=== PATIENT | female | born 1960 | race Caucasian/White ===

== ENCOUNTER 2019-06-29 10:57 | Inpatient (IN) | payer BC ==
[2019-06-29 12:40] LABS: #Eosinphils 0.2 thou/uL (0.0-0.7); #Lymphocytes 1.1 thou/uL (1.20-3.40); #Monocytes 0.5 thou/uL (0.11-0.59); #Neutrophils 3.5 thou/uL (1.40-6.50); %Basophils 0.7 % (0.0-1.0); %Eosinophils 3.3 % (0.0-10.0); %Lymphocytes 20.6 % (21.0-51.0); %Monocytes 9.3 % (0.0-10.0); %Neutrophils 66.1 % (42.0-75.0); Hemoglobin 13.5 g/dL (12.0-16.0); Mean Corpuscular Hemoglobin 29.8 pg (27.0-31.0); Mean Corpuscular Volume 87.7 fL (78.0-98.0); Mean Platelet Volume 8.8 fL (7.4-10.4); Platelet Count 203 thou/uL (130-400); RBC Distribution Width 14.7 % (11.5-14.5); Red Blood Cell (RBC) Count 4.52 mill/uL (4.20-5.40); White Blood Cell (WBC) Count 5.3 thou/uL (4.8-10.8)
--- NOTE | 2019-06-29 13:12 | CT ---
Exam: CT brain PROVIDED CLINICAL HISTORY: Vertigo COMPARISON: None FINDINGS: The ventricular system is normal in size and morphology. No evidence for intracranial hemorrhage or mass effect. The extracranial soft tissues and osseous structures demonstrate no evidence for an acute abnormality. IMPRESSION: No evidence for intracranial hemorrhage or mass effect.
[2019-06-29] MEDS ORDERED: Ondansetron PF 4 MG/2 ML Vial ONE (13:22)
--- NOTE | 2019-06-29 13:22 | RAD ---
EXAM: Portable chest PROVIDED CLINICAL HISTORY: Chest pain COMPARISON: None FINDINGS: Cardiac silhouette appears enlarged, which may be least partially on the basis of portable technique. No focal consolidation, pleural fluid or pneumothorax evident. IMPRESSION: No evidence for an acute cardiopulmonary process.
[2019-06-29] MEDS ORDERED: Aspirin Chewable 81 MG TAB ONE (14:04)
[2019-06-29 14:16] LABS: ALT (SGPT) 16 U/L (8-55); AST (SGOT) 21 U/L (5-34); Albumin 3.6 g/dL (3.5-5.0); Alkaline Phosphatase 107 U/L (40-150); Anion Gap 10 mmol/L (10-20); BUN (Urea Nitrogen) 16 mg/dL (9.8-20.1); Bilirubin, Total Less than 0.2 mg/dL (0.2-1.2); Calc. Creatinine Clearance 0 mL/min (70-130); Calcium 8.8 mg/dL (7.8-10.44); Carbon Dioxide 26 mmol/L (22-29); Chloride 109 mmol/L (98-107); Estimated GFR-MDRD 50; Globulin 2.9 g/dL (2.4-3.5); Glucose 74 mg/dL (70-105); Lipase 18 U/L (8-78); Potassium 3.5 mmol/L (3.5-5.1); Protein, Total 6.5 g/dL (6.0-8.3); Sodium 141 mmol/L (136-145)
[2019-06-29 14:44] LABS: Bilirubin Negative (Negative); Blood, Urine Negative (Negative); Clarity Clear (Clear); Glucose, Urine (Dipstick) Normal (Negative); Leukocyte Negative Leu/uL (Negative); Nitrite Negative (Negative); Protein, Urine (Dipstick) Negative (Neg-Trace); Urobilinogen Normal mg/dL (Less than 2)
[2019-06-29 17:43] VITALS: BMI 31.5
[2019-06-29] MEDS: oxyCODONE 5 MG TAB PO PRN (22:04)
[2019-06-30] MEDS ORDERED: ALPRAZolam 0.25 MG TAB PO PRN (08:05)
[2019-06-30] MEDS ORDERED: Ondansetron ODT 4 MG TAB PO PRN (08:07)
[2019-06-30] MEDS ORDERED: Acetaminophen 325 MG TAB PO PRN (08:07)
[2019-06-30] MEDS ORDERED: Ondansetron PF 4 MG/2 ML Vial IVP PRN (08:07)
[2019-06-30] MEDS ORDERED: hydrALAZINE 20 MG/ML VIAL SLOW IVP PRN (08:09)
[2019-06-30] MEDS ORDERED: Docusate 100 MG CAP PO PRN (08:09)
[2019-06-30] MEDS ORDERED: diphenhydrAMINE 25 MG CAP PO PRN (08:09)
[2019-06-30] MEDS ORDERED: Benzonatate 100 MG CAP PO PRN (08:09)
[2019-06-30] MEDS ORDERED: Prevnar 13-Val Conj/PF 0.5 ML SYRINGE IM ONE (09:00)
[2019-06-30] MEDS: Pregabalin 75 MG CAP PO SCH ×2 (09:06→20:52)
[2019-06-30] MEDS: Bupropion 150 MG XL TAB PO SCH (09:06)
[2019-06-30] MEDS: Topiramate 25 MG TAB PO SCH ×2 (09:08→20:51)
[2019-06-30] MEDS: Famotidine 20 MG TAB PO SCH ×2 (09:08→20:50)
[2019-06-30] MEDS: Furosemide 20 MG TAB PO SCH (09:08)
--- NOTE | 2019-06-30 09:33 | CON ---
DATE OF CONSULTATION: 06/30/2019 IMPRESSION: Nonspecific fatigue, lower extremity tingling and low back pain. PLAN: 1. Sed rate, ESPERANZA, RA, B12, T4. 2. CT scan of the lumbar spine. HISTORY OF PRESENT ILLNESS: Ms. Benoit is a 59-year-old white female with reported history of fibromyalgia and bladder dysfunction, requiring an implanted device. She has been seeing a neurologist in the [facility] for several month history of what she describes as waves and explosions in her head. She was supposed to get an MRI done at a special unit that would accommodate the fact that she had a stimulator. Apparently, it has been put off for several months. She reports that she became very fatigued while she was at work and had her sister come pick her up. She went to her house and spent the entire day sleeping on her couch. She went back to her own house and slept through the night. The next day, she continued to feel fatigued. At some point, she started having lower back pain and tingling in her legs. She has not run any fever and denies any nausea, vomiting, blurred vision, double vision, trouble speaking, or any problems with cognition. She felt mentally foggy prior to admission. She came into the ER because of these ongoing complaints. She had a CT scan of the brain done, which was normal. Her vital signs have been stable. She has been afebrile. She had routine lab work including a CBC and comprehensive metabolic panel, which were all unremarkable as well. Her urinalysis was clear. PAST HISTORY: Fibromyalgia. FAMILY HISTORY: Noncontributory. ALLERGIES: SHELLFISH. SOCIAL HISTORY: No reported alcohol or drug use. REVIEW OF SYSTEMS: Ten-system review of systems otherwise negative. PHYSICAL EXAMINATION: GENERAL: She is a well-nourished, middle-aged woman, sitting up in bed, eating breakfast. VITAL SIGNS: Blood pressure 158/73, pulse 83, respirations 16, and temperature 97.7. HEENT: Pupils are equal and reactive. Conjunctivae are clear. Oropharynx clear. Cranium, normocephalic and atraumatic. NECK: Supple. No lymphadenopathy noted. She reported soft-tissue tenderness to light palpation of her throat. EXTREMITIES: No cyanosis, clubbing, or edema. NEUROLOGIC: She was alert and cooperative. Her speech is fluent and clear. Cranial nerves were intact. Motor exam showed good size roller operator strength bilaterally. She had good ankle strength and toe extension bilaterally. Sensation was subjectively intact to touch. Plantar responses were downgoing. No abnormal movements were seen. Gait was not tested. SUMMARY: This is a middle-aged woman with some vague ongoing complaints of rushes in her head, excessive fatigue and lower back pain and tingling in her legs. Her exam is otherwise unremarkable. Uncertain as an ongoing problem. I suspect that there is a psychogenic component to it. Job ID: [id number]
[2019-06-30] MEDS: oxyCODONE 5 MG TAB PO PRN (13:54)
--- NOTE | 2019-06-30 14:03 | ULT ---
EXAM: Carotid Doppler PROVIDED CLINICAL HISTORY: TIA COMPARISON: None FINDINGS: Grayscale and color Doppler sonography with spectral analysis was performed of the extracranial carot id system bilaterally. There is no evidence for a hemodynamically significant internal carotid artery stenosis by peak systolic velocity or ratio criteria. Antegrade flow is seen in the vertebral arteries. IMPRESSION: No sonographic evidence for a hemodynamically significant internal carotid artery stenosis.
[2019-06-30] MEDS: Cyclobenzaprine 10 MG TAB PO PRN (20:50)
[2019-06-30] MEDS: hydrOXYzine 25 MG TAB PO SCH (20:51)
[2019-06-30] MEDS: Amitriptyline HCl 100 MG TAB PO SCH (20:51)
[2019-07-01 05:25] LABS: #Eosinphils 0.2 thou/uL (0.0-0.7); #Lymphocytes 1.1 thou/uL (1.20-3.40); #Monocytes 0.6 thou/uL (0.11-0.59); #Neutrophils 4.2 thou/uL (1.40-6.50); %Basophils 0.5 % (0.0-1.0); %Eosinophils 3.3 % (0.0-10.0); %Monocytes 9.2 % (0.0-10.0); %Neutrophils 68.9 % (42.0-75.0); Hemoglobin 13.3 g/dL (12.0-16.0); Mean Corpuscular HGB CONC 34.1 g/dL (32.0-36.0); Mean Corpuscular Hemoglobin 30.1 pg (27.0-31.0); Mean Corpuscular Volume 88.3 fL (78.0-98.0); Mean Platelet Volume 8.1 fL (7.4-10.4); Platelet Count 194 thou/uL (130-400); RBC Distribution Width 14.5 % (11.5-14.5); Red Blood Cell (RBC) Count 4.43 mill/uL (4.20-5.40); White Blood Cell (WBC) Count 6.1 thou/uL (4.8-10.8)
[2019-07-01 05:30] LABS: Anion Gap 10 mmol/L (10-20); BUN (Urea Nitrogen) 14 mg/dL (9.8-20.1); Calc. Creatinine Clearance 69 mL/min (70-130); Calcium 8.9 mg/dL (7.8-10.44); Carbon Dioxide 26 mmol/L (22-29); Chloride 106 mmol/L (98-107); Estimated GFR-MDRD 50; Glucose 92 mg/dL (70-105); Potassium 3.9 mmol/L (3.5-5.1); Sodium 138 mmol/L (136-145)
[2019-07-01] MEDS: oxyCODONE 5 MG TAB PO PRN (07:04)
--- NOTE | 2019-07-01 07:45 | HP ---
CHIEF COMPLAINT: Weakness and near syncope. HISTORY OF PRESENT ILLNESS: Ms. Benoit is a 59-year-old female with past medical history of fibromyalgia, lupus, chronic pain syndrome, anxiety, depression, and neuropathic pain, who presents with worsening weakness and near syncope. The patient states that symptoms started on Monday when she went to work. She decided she was going to use a walker because she was feeling more weak. While at work, the patient was more tired than normal and had episodes where she felt like she was nearly going to pass out because she was so tired. The patient did not actually lose consciousness. The patient did not fall. The patient had no trauma to the head, arms, or legs. The patient also with weakness that is worse than her baseline. The patient with numbness and tingling on the right side of her face. The patient's family was concerned and [facility]. PAST MEDICAL HISTORY: 1. Fibromyalgia. 2. Lupus. 3. Chronic pain syndrome. 4. Anxiety. 5. Depression. 6. Migraines. 7. Neuropathic pain. 8. Muscle spasms. MEDICATIONS: 1. Amitriptyline. 2. Lyrica. 3. Topiramate. 4. Cyclobenzaprine. 5. Oxycodone 10 mg one tab p.o. q.8 hours p.r.n. 6. Hydroxyzine 25 mg one tablet p.o. at bedtime. 7. Furosemide 20 mg one tablet p.o. daily p.r.n. lower extremity swelling. 8. Bupropion 150 mg one tablet p.o. daily. 9. Xanax 0.25 mg one tablet p.o. t.i.d. p.r.n. REVIEW OF SYSTEMS: A 10-point review of systems was performed and negative aside from history of present illness. ALLERGIES: SHELLFISH DERIVED. PHYSICAL EXAMINATION: VITAL SIGNS: Temperature 97.7, pulse 83, respirations 16, O2 saturation 95% on room air, and blood pressure 158/73. GENERAL: The patient is alert and oriented, cooperative with exam and follows all commands. The patient in no acute distress. HEENT: Head is normocephalic and atraumatic. Pupils are equally round and reactive to light and accommodation. Extraocular muscles intact. Vision is grossly intact. There are no appreciated exudates or erythema on the tonsils. CARDIAC: S1 and S2 present. No appreciated murmurs, rubs, or gallops. There is no significant peripheral edema. LUNGS: Clear to auscultation bilaterally. No appreciated wheezing, rales, or rhonchi. ABDOMEN: Soft, nontender, and nondistended without guarding or rigidity. No appreciated masses or abdominal bruit. MUSCULOSKELETAL: There is adequate alignment of the spine that is tender to palpation bilaterally. Normal muscle development. EXTREMITIES: No significant deformity or joint abnormality. No significant lower extremity or upper extremity edema. NEUROLOGIC: Cranial nerves II through XII are grossly intact. Strength is symmetric. Subjective decrease in sensation on the right side of the face. Poor effort with motor exam testing. SKIN: Normal in color, texture, and turgor. There are no appreciated lesions or rashes. PSYCHIATRIC: The patient is alert and oriented x3 and has fair insight and judgment into clinical condition. No hallucinations or abnormal behavior. LABORATORY DATA: WBC 5.3, RBC 4.52, hemoglobin 13.5, hematocrit 39.7, MCV 87.7, and platelets 203. Sodium 141, potassium 3.5, chloride 109, carbon dioxide 26, anion gap of 10, BUN 16, creatinine 1.12, GFR 50, glucose 74, calcium 8.8, total bilirubin less than 0.2, AST 21, ALT 16, and alkaline phosphatase 107. Troponin less than 0.010. BNP less than 10. Serum total protein 6.5, serum albumin 3.6, globulin 2.9, lipase 18. Urinalysis; urine color is light yellow, urine clarity is clear, urine pH 7.0, urine specific gravity 1.009, urine protein negative, urine glucose normal, urine ketones negative, urine blood negative, urine nitrites negative, urine bilirubin negative, urine urobilinogen normal, and leukocyte esterase negative. RADIOGRAPHIC IMAGING: Please see full imaging reports for details. CT brain: Impression, no evidence for intracranial hemorrhage or mass effect. Chest x-ray: Impression: No evidence for acute cardiopulmonary process. ASSESSMENT AND PLAN: 1. Generalized weakness with right-sided paresthesias and near syncope - concern for transient ischemic attack. The patient admitted to the Stroke Unit. The patient will have MRI of the brain. The patient will have echocardiogram. The patient will have ultrasound of the neck. The patient has no appreciated focal neurologic deficits and is outside of tPA window as the timing of incident was Monday morning and this is now Monday morning. Pending the above workup, we will consider stroke regimen including aspirin, statin, and ANNEL inhibitor. Pending Neurology consultation requested by the emergency department physician for further recommendations. If the above workup is negative, the patient's symptoms may be explained by polypharmacy and she is taking multiple medications that can cause altered mental status and decreased awareness. We will public relations counselor the patient on avoiding combination of medications that may decrease her level of awareness. 2. Polypharmacy including oxycodone, Xanax, Lyrica, Flexeril, and amitriptyline, all of which are known to cause altered mental status and decrease awareness. 3. Near syncope - secondary to above. 4. Chronic pain syndrome. 5. Fibromyalgia. 6. Lupus. 7. Depression. 8. Anxiety. 9. Neuropathic pain. 10. Migraines. 11. Insomnia. Job ID: [id number]
[2019-07-01] MEDS: Topiramate 25 MG TAB PO SCH ×2 (08:24→21:12)
[2019-07-01] MEDS: Pregabalin 75 MG CAP PO SCH ×2 (08:25→21:11)
[2019-07-01] MEDS: Furosemide 20 MG TAB PO SCH (08:26)
[2019-07-01] MEDS: Famotidine 20 MG TAB PO SCH ×2 (08:26→21:11)
[2019-07-01] MEDS: Bupropion 150 MG XL TAB PO SCH (08:26)
--- NOTE | 2019-07-01 10:12 | CT ---
CT LUMBAR SPINE WITHOUT CONTRAST: INDICATIONS: Low back pain with bilateral lower extremity radiculopathy COMPARISON: Chest radiograph dated June 29, 2019 TECHNIQUE: Multiple CT images were obtained of the lumbar spine without contrast. Axial, coronal, and sagittal r eformatted images were constructed from the raw data. FINDINGS: Visualized retroperitoneal and paravertebral soft tissues: Within normal limits Spinal alignment: There is grade 1 anterolisthesis of L4 on L5. 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 Spinal instrumentation or postsurgical change: There is partial visualization of a stimulator lead pr ojecting in the region of the left S3 neural foramina. At L5-S1, there is no appreciable central canal or neuroforaminal narrowing.. At L4-5, there is severe bilateral facet joint degenerative change. There is grade 1 anterolisthesis with a broad-based pseudobulge. There is mild bilateral neural foraminal narrowing. There is suggestion of at least moderate central canal narrowing at L4-5 At L3-4, there is a mild broad-based bulge and mild facet joint degenerative change. At L2-3, there is no appreciable central canal or neuroforaminal narrowing. At L1-L2, there is no appreciable central canal or neuroforaminal narrowing. At T12-L1, there is no appreciable central canal or neuroforaminal narrowing. IMPRESSION: 1. Mild spondylosis of the lumbar spine with mild bilateral neural foraminal narrowing and moderate central canal narrowing at L4-5. 2. Grade 1 anterior listhesis of L4 and L5 related to facet degenerative change. 3. 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 5 lumbar type vertebral bodies are marked on the current examination.
--- NOTE | 2019-07-01 15:04 | PDOC.HOSPP ---
- Subjective Subjective: Seen and examined. Patient states that she's taken her oxycodone and now she's feeling sleepy and trouble staying awake. Patient breathing well on room air. In no apparent distress. No focal neurologic deficits. Subjective paresthesias and pains persistent. - Objective Vital Signs & Weight: Vital Signs (12 hours) Temp Pulse Pulse Pulse Resp BP BP 07/01/19 12:04 97.4 F L 95 20 07/01/19 11:15 98 95 100/66 126/74 07/01/19 08:25 07/01/19 08:10 97.8 F 80 12 07/01/19 04:00 97.6 F 84 14 BP Pulse Ox 07/01/19 12:04 120/72 96 07/01/19 11:15 07/01/19 08:25 97 07/01/19 08:10 109/64 97 07/01/19 04:00 109/63 92 L Weight Admit Weight 177 lb 14.4 oz Weight 177 lb 14.4 oz I&O: 06/30/19 07/01/19 07/02/19 06:59 06:59 06:59 Intake Total 720 1120 480 Balance 720 1120 480 Result Diagrams: 07/01/19 04:45 07/01/19 04:45 Radiology Reviewed by me: Yes (CT lumbar) Hospitalist ROS - Medication Medications: Active Medications Generic Name Dose Route Start Last Admin Trade Name Freq PRN Reason Stop Dose Admin Amitriptyline HCl 100 mg 06/30/19 21:00 06/30/19 20:51 Elavil PO 100 mg QPM DIMAS Administration Bupropion HCl 150 mg 06/30/19 09:00 07/01/19 08:26 Wellbutrin Xl PO 150 mg DAILY DIMAS Administration Cyclobenzaprine HCl 10 mg 06/30/19 08:05 06/30/19 20:50 Flexeril PO 10 mg BIDPRN PRN Administration Muscle Spasm Famotidine 20 mg 06/30/19 09:00 07/01/19 08:26 Pepcid PO 20 mg BID DIMAS Administration Furosemide 20 mg 06/30/19 09:00 07/01/19 08:26 Lasix PO 20 mg DAILY DIMAS Administration Hydroxyzine HCl 25 mg 06/30/19 21:00 06/30/19 20:51 Atarax PO 25 mg QPM DIMAS Administration Oxycodone HCl 10 mg 06/29/19 20:32 07/01/19 07:04 Oxycodone Ir PO 10 mg Q8H PRN Administration Pain Pregabalin 150 mg 06/30/19 09:00 07/01/19 08:25 Lyrica PO 150 mg BID DIMAS Administration Topiramate 50 mg 06/30/19 09:00 07/01/19 08:24 Topamax PO 50 mg BID DIMAS Administration - Exam General Appearance: NAD, awake alert Eye: anicteric sclera ENT: no oropharyngeal lesions, moist mucosa Neck: supple, symmetric, no JVD Heart: no murmur, no gallops, no rubs Respiratory: no wheezes, no rales, no ronchi Gastrointestinal: soft, non-tender, non-distended, no guarding, no rigidity Extremities: no edema Skin: no lesions, no rashes Neurological: cranial nerve grossly intact, normal sensation to touch, no focal deficits Musculoskeletal: no muscle wasting, generalized weakness (poor effort) Psychiatric: normal affect, A&O x 3 Hosp A/P (1) Back pain Code(s): M54.9 - DORSALGIA, UNSPECIFIED Status: Chronic (2) Numbness and tingling Code(s): R20.0 - ANESTHESIA OF SKIN; R20.2 - PARESTHESIA OF SKIN Status: Chronic (3) Near syncope Status: Acute (4) Fibromyalgia Status: Chronic (5) Fibromyalgia affecting multiple sites Code(s): M79.7 - FIBROMYALGIA Status: Chronic - Plan Plan: neurology consultation, recommendations appreciated patient and able to complete MRI secondary to implanted hardware that is not compatible with our MRI machine, she does have an outpatient appointment for MRI in July that she is going to follow up with sheets tells me. Lumbar spine CT scan with no significant pathology metabolic workup was benign echocardiogram normal patient with chronic pain syndrome, fibromyalgia, and polypharmacy patient needs to follow up with primary care physician on a regular basis to avoid future hospitalizations
[2019-07-01] MEDS: Amitriptyline HCl 100 MG TAB PO SCH (21:11)
[2019-07-01] MEDS: hydrOXYzine 25 MG TAB PO SCH (21:11)
[2019-07-01] MEDS: Cyclobenzaprine 10 MG TAB PO PRN (21:12)
[2019-07-02] MEDS: Pregabalin 75 MG CAP PO SCH (09:17)
[2019-07-02] MEDS: Furosemide 20 MG TAB PO SCH (09:18)
[2019-07-02] MEDS: Famotidine 20 MG TAB PO SCH (09:18)
[2019-07-02] MEDS: Bupropion 150 MG XL TAB PO SCH (09:18)
[2019-07-02] MEDS: Topiramate 25 MG TAB PO SCH (09:18)
--- NOTE | 2019-07-02 11:12 | PDOC.HOSPP ---
- Subjective Subjective: Seen and examined. Patient is groggy early this morning. No acute overnight events. Pain controlled on current regimen. Patient considering rehab. - Objective Vital Signs & Weight: Vital Signs (12 hours) Temp Pulse Pulse Pulse Resp BP BP 07/02/19 10:02 07/02/19 09:22 98 F 88 11 L 07/02/19 09:18 92 89 130/71 137/78 07/02/19 03:53 97.3 F L 80 16 07/02/19 00:00 97.7 F 86 16 BP BP Pulse Ox 07/02/19 10:02 97 07/02/19 09:22 137/78 97 07/02/19 09:18 07/02/19 03:53 111/66 97 07/02/19 00:00 110/65 95 Weight Admit Weight 177 lb 14.4 oz Weight 177 lb 14.4 oz I&O: 07/01/19 07/02/19 07/03/19 06:59 06:59 06:59 Intake Total 1120 600 Balance 1120 600 Result Diagrams: 07/01/19 04:45 07/01/19 04:45 Hospitalist ROS - Review of Systems All other systems reviewed; all pertinent +/- noted in HPI/Subj - Medication Medications: Active Medications Generic Name Dose Route Start Last Admin Trade Name Freq PRN Reason Stop Dose Admin Amitriptyline HCl 100 mg 06/30/19 21:00 07/01/19 21:11 Elavil PO 100 mg QPM DIMAS Administration Bupropion HCl 150 mg 06/30/19 09:00 07/02/19 09:18 Wellbutrin Xl PO 150 mg DAILY DIMAS Administration Cyclobenzaprine HCl 10 mg 06/30/19 08:05 07/01/19 21:12 Flexeril PO 10 mg BIDPRN PRN Administration Muscle Spasm Famotidine 20 mg 06/30/19 09:00 07/02/19 09:18 Pepcid PO 20 mg BID DIMAS Administration Furosemide 20 mg 06/30/19 09:00 07/02/19 09:18 Lasix PO 20 mg DAILY DIMAS Administration Hydroxyzine HCl 25 mg 06/30/19 21:00 07/01/19 21:11 Atarax PO 25 mg QPM DIMAS Administration Oxycodone HCl 10 mg 06/29/19 20:32 07/01/19 07:04 Oxycodone Ir PO 10 mg Q8H PRN Administration Pain Pregabalin 150 mg 06/30/19 09:00 07/02/19 09:17 Lyrica PO 150 mg BID DIMAS Administration Topiramate 50 mg 06/30/19 09:00 07/02/19 09:18 Topamax PO 50 mg BID DIMAS Administration - Exam General Appearance: NAD, awake alert Eye: anicteric sclera ENT: normocephalic atraumatic, moist mucosa Neck: supple, symmetric, no thyromegaly Heart: no murmur, no gallops, no rubs Respiratory: no wheezes, no rales, no ronchi Gastrointestinal: soft, non-tender, non-distended, no guarding, no rigidity Extremities: no clubbing, no edema Skin: no lesions, no rashes Neurological: cranial nerve grossly intact, no focal deficits. negative: facial droop, hemiplegia, speech deficit, vision deficit Musculoskeletal: normal tone, no muscle wasting, generalized weakness Psychiatric: normal affect, A&O x 3 Hosp A/P (1) Back pain Code(s): M54.9 - DORSALGIA, UNSPECIFIED Status: Chronic (2) Numbness and tingling Code(s): R20.0 - ANESTHESIA OF SKIN; R20.2 - PARESTHESIA OF SKIN Status: Chronic (3) Near syncope Status: Acute (4) Fibromyalgia Status: Chronic (5) Fibromyalgia affecting multiple sites Code(s): M79.7 - FIBROMYALGIA Status: Chronic - Plan Plan: Medical unit with telemetry stroke unit patient considering rehabilitation placement to regain her strength clinical suspicion for CVA is extremely unlikely per neurology, psychogenic etiology and fibromyalgia flair likely cause of patient symptoms in addition to polypharmacy neurology consultation, recommendations appreciated patient and able to complete MRI secondary to implanted hardware that is not compatible with our MRI machine, she does have an outpatient appointment for MRI in July Lumbar spine CT scan with no significant pathology metabolic workup was benign echocardiogram normal patient with chronic pain syndrome, fibromyalgia, and polypharmacy patient needs to follow up with primary care physician on a regular basis to avoid future hospitalizations
--- NOTE | 2019-07-02 15:02 | DIS ---
DATE OF ADMISSION: 06/29/2019 DATE OF DISCHARGE: 07/02/2019 REASON FOR HOSPITALIZATION: Near syncope and altered level of consciousness. SIGNIFICANT FINDINGS: The patient was found to have polypharmacy including taking oxycodone, Xanax, and Flexeril as often as she wants to and this resulted in her being less aware of her surroundings. PROCEDURES PERFORMED/TREATMENTS RENDERED: The patient was seen and evaluated by Neurology, please see full consultation and progress notes for details. The patient had a full workup including labs and imaging by Neurology, all of which were found to have minor abnormalities without any significant pathology. The patient was recommended placement for rehabilitation facility by a physical therapist-the patient unfortunately refused any rehabilitation facility and states that she would like to go home with home health care. CONDITION ON DISCHARGE: Stable. SPECIFIC INSTRUCTIONS FOR THE PATIENT/FAMILY: 1. The patient is recommended to stop oxycodone, Xanax, and Flexeril. 2. The patient is recommended to follow up with primary care physician and all other specialists as directed. 3. The patient is recommended to follow up with neurologist in the next 1 to 2 weeks. 4. The patient is recommended to follow up with production painter in the next 1 to 2 weeks. 5. The patient is recommended to keep her appointment in July for an MRI in the outpatient setting, which is compliant with her implanted nerve stimulator. 6. The patient is recommended to work with Physical Therapy and Occupational Therapy in the home setting and regain her balance so that she has lower risk to falls. 7. The patient is recommended to return to acute care hospital immediately if signs or symptoms return, worsen, or any other new symptoms occur. DISCHARGE MEDICATIONS: 1. Amitriptyline 100 mg one tablet p.o. at bedtime. 2. Lyrica 150 mg one tablet p.o. b.i.d. 3. Topiramate 50 mg one tablet p.o. b.i.d. 4. Hydroxyzine 25 mg one tablet p.o. q.4 hours p.r.n. anxiety. 5. Furosemide 20 mg one tablet p.o. daily. 6. Bupropion 150 mg one tablet p.o. daily. 7. Tylenol 325 mg q.4 hours p.r.n. pain. HOSPITAL COURSE: Ms. Benoit is a very pleasant 59-year-old white female, who presented to [facility] on 06/29/2019 with near syncope and altered level of consciousness. The patient was alert and oriented x3, though she was somnolent and difficult to question on admission. The patient was initially concerned for transient ischemic attack by the emergency department physician and she was admitted to the Stroke Unit. The patient had a CT scan of the brain, please see full report for details, no acute intracranial pathology was identified. The patient was not a tPA candidate secondary to low NIH score. The patient had no focal neurologic deficits. The patient has no appreciated focal motor weaknesses. The patient does have subjective paresthesias on the right side of her face and the right side of her arm. The patient does state that she occasionally gets tired when she takes her oxycodone, Xanax, and Flexeril. She endorses that she takes these medications as often as she needs them. The patient was seen and evaluated by Neurology, please see full consultation and progress notes for details. Neurology recommending MRI of the brain. Unfortunately, MRI could not be completed secondary to implanted nerve stimulator. Neurology recommending that she comply with her outpatient MRI that is scheduled in July and she will have this result within the next one month. She will follow up on MRI results with her primary care physician, neurologist, and production painter. The rest of the patient's workup was overly benign including laboratory data and imaging. I recommended the patient that she stop polypharmacy including medications that can alter her level of consciousness, including but not limited to Percocet, oxycodone, Xanax, and Flexeril. These medications individually are known to cause altered level of consciousness and when combined in getting this cocktail can be a lethal combination. I recommended she stop all these medications and talk them over with her primary care physician, neurologist, and production painter in the next 1 to 2 weeks. The patient is recommended to follow up with all specialists as directed. The patient recommended to return to acute care hospital immediately if signs or symptoms return, worsen, or any other new symptoms occur. The patient was evaluated by Physical Therapy, who recommended the patient was appropriate for rehabilitation placement. I recommended to the patient that she go to rehab and get a full course of inpatient rehab for strength and balance training and to regain her level of independence. Nursing staff and case fitter recommended to the patient that she go to a rehabilitation facility. Unfortunately, despite all of our efforts, the patient refused any rehabilitation placement. Patient decided that she was going to go home and she would like to go home with home health care. Efforts were made coordinating with case fitter to set up the patient with home health care, so that she will have physical therapy and occupational therapy in the home setting. Greater than 41 minutes spent coordinating care and discharge process for this patient. Job ID: [id number]
[2019-07-02] MEDS: oxyCODONE 5 MG TAB PO PRN (16:30)
[2019-07-02 16:35] VITALS: BP 101/64; TEMP 97.7
[2019-07-03 17:28] LABS: ANA Symphony (Qualitative) Negative (Negative); ANA Symphony (Quantitative) 0.4 Ratio (< 0.7 Negative); CCP IgG Antibody 0.6 EliAU/mL (<7 Negative); EliA RAS New Method **** NEW METHOD ****; Rheumatoid Factor IgA Antibody 2.1 IU/mL (<14 Negative); Rheumatoid Factor IgM Antibody Less than 0.5 IU/mL (<3.5 Negative); dsDNA IgG Antibody 1.6 IU/mL (<10 Negative)
--- NOTE | 2019-07-04 06:20 | PQF ---
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 Clinical indicators are provided on the bottom of this form for your review Please check appropriate box(s): Syncope Due to: [ XX ] Adverse effect of Polypharmarcy drugs [ ] Poisioning of Polypharmarcy drugs [ ] Other diagnosis [ ] Unable to determine In addition, please specify: Present on Admission (POA): [ XX ] Yes [ ] No [ ] Unable to determine For continuity of documentation, please document condition throughout progress notes and discharge summary. Thank You. CLINICAL INDICATORS - SIGNS / SYMPTOMS / LABS Weakness and syncope - Documented in H&P on 06/29 by NIA WIN Pts symptoms may be explained by polypharmacy - Documented in H&P on 06/29 by NIA WIN she is taking multiple medication that can cause AMS and decreased awarness - Documented in H&P on 06/29 by NIA WIN Polypharmacy including oxycodone, xanax, lyrica, flexeril and amitriptyline - Documented in H&P on 06/29 by NIA WIN she occasionally get tired when he takes her oxycodone, xanax - Documented in DS on 07/03 by NIA WIN RISK FACTORS Lupus - Documented in H&P on 06/29 by NIA WIN Medication individually are known as cause of altered level of consciousness - Documented in DS on 07/03 by NIA WIN TREATMENTS consult patient avoiding combination of medication - Documented in H&P on 06/29 by AUDELIA, NIA LACY brain [employer] B[employer]er Worker Crystal Reports Winform Viewer (This form is maintained as a part of the permanent medical record) 2014 [employer]. All Rights Reserved [email or web address] [not provided] MTDD
== END 2019-07-02 16:58 | disposition home health service (06) | DRG 312 ==
LOC: ERS 10:57 → 2SE 15:20 → OBSVTOIN 15:20
PROVIDERS: ADMIT Internal Medicine; ATTEND Internal Medicine
DX: R55 Syncope and collapse (principal); F41.9 Anxiety disorder, unspecified; G43.909 Migraine, unspecified, not intractable, without status migrainosus; M79.7 Fibromyalgia; G89.4 Chronic pain syndrome; G47.00 Insomnia, unspecified; M54.5 Low back pain; T39.1X5A Adverse effect of 4-Aminophenol derivatives, initial encounter; T42.4X5A Adverse effect of benzodiazepines, initial encounter; T48.1X5A Adverse effect of skeletal muscle relaxants [neuromuscular blocking agents], initial encounter; Z79.899 Other long term (current) drug therapy; Z91.013 Allergy to seafood
CPT/HCPCS: 36415; 70450; 71045; 72131; 80048; 80053; 81003; 82607; 83520; 83690; 83880; 84436; 84484; 85025; 85652; 86038; 86200; 86225; 90471; 90670; 93005; 93306; 93880; 96361; 96374; G0009; J2405

== ENCOUNTER 2019-09-30 16:08 | Emergency (ER) | payer BC ==
--- NOTE | 2019-09-30 16:40 | CT ---
Exam: Head CT without contrast HISTORY: Syncopal episode. COMPARISON: 06/29/2019 FINDINGS: Hemorrhage: No intraparenchymal hemorrhage or extra-axial hematoma. Brain parenchyma: Cortical arguello-white matter differentiation is preserved. No mass effect or midline shift. Basilar cisterns are patent. Ventricular system: Ventricles and sulci are patent and symmetric. Calvarium: Intact. Sinuses and mastoid air cells: Adequate aeration. IMPRESSION: No acute intracranial process.
[2019-09-30 16:42] LABS: #Eosinphils 0.1 thou/uL (0.0-0.7); #Lymphocytes 1.3 thou/uL (1.20-3.40); #Monocytes 0.5 thou/uL (0.11-0.59); %Basophils 0.8 % (0.0-1.0); %Lymphocytes 26.8 % (21.0-51.0); %Monocytes 9.2 % (0.0-10.0); %Neutrophils 60.2 % (42.0-75.0); Hemoglobin 13.7 g/dL (12.0-16.0); Mean Corpuscular HGB CONC 33.8 g/dL (32.0-36.0); Mean Corpuscular Hemoglobin 29.6 pg (27.0-31.0); Mean Corpuscular Volume 87.7 fL (78.0-98.0); Platelet Count 205 thou/uL (130-400); RBC Distribution Width 14.6 % (11.5-14.5); Red Blood Cell (RBC) Count 4.61 mill/uL (4.20-5.40); White Blood Cell (WBC) Count 4.9 thou/uL (4.8-10.8)
[2019-09-30 17:01] LABS: ALT (SGPT) 17 U/L (8-55); AST (SGOT) 22 U/L (5-34); Albumin 4.1 g/dL (3.5-5.0); Alkaline Phosphatase 122 U/L (40-110); BUN (Urea Nitrogen) 14 mg/dL (9.8-20.1); Bilirubin, Total 0.3 mg/dL (0.2-1.2); Calc. Creatinine Clearance 0 mL/min (70-130); Carbon Dioxide 25 mmol/L (22-29); Chloride 106 mmol/L (98-107); Estimated GFR-MDRD 46; Globulin 3.5 g/dL (2.4-3.5); Glucose 88 mg/dL (70-105); Potassium 3.4 mmol/L (3.5-5.1); Protein, Total 7.6 g/dL (6.0-8.3); Sodium 139 mmol/L (136-145)
[2019-09-30 17:13] LABS: Anion Gap 11 mmol/L (10-20)
--- NOTE | 2019-09-30 17:31 | RAD ---
SINGLE VIEW OF THE CHEST: Comparison: 06-29-19 History: Syncope. FINDINGS: Single view of the chest shows a cardiomediastinal silhouette which is upper limits of normal in size . There is no evidence of consolidation, mass, or pleural effusion. Degenerative changes are seen in the spine. IMPRESSION: No evidence of acute cardiopulmonary disease. POS: C
--- NOTE | 2019-09-30 17:34 | CT ---
CT OF THE CERVICAL SPINE WITHOUT CONTRAST: Comparison: None History: Syncope with head trauma and neck pain. Technique: Multiple contiguous axial images were obtained in a CT of the cervical spine without contr ast. Sagittal and coronal reformats were performed. FINDINGS: The C5 vertebral body is retro-displaced compared to the C4 and C6 vertebral bodies. This is secondar y to degenerative change. There is no evidence of acute fracture or subluxation. Moderate degenerativ e changes are seen throughout the cervical spine with intervertebral disc space narrowing and osteoph yte formation. The posterior facets are well aligned. Normal alignment of the skull base with the cervical spine is seen. IMPRESSION: Degenerative changes of the cervical spine without acute osseous abnormality. POS: [facility]
--- NOTE | 2019-09-30 20:03 | PDOC.HHP ---
Hospitalist HPI - History of Present Illness AMS History of Present Illness: Ms. Benoit is 59y/o female with h/o chronic pain syndrome, fibromyalgia, anxiety, depression, neuropathic pain who presented to the ER after sudden collapse and LOC. Patient states that she felt "popping sounds" in her head for ~1 hour prior to suddenly losing consciousness. It is unclear how long she was out for and no witnesses to the episode is at her bedside. She reports that her symptoms have been ongoing for months and she follows up with neurologist outpatient. She had a recent MRI in [facility] and it was unremarkable. She has no obvious seizure and work up by neurologist outpatient thus far has been unremarkable. Patient was seen here at the hospital in june 2019 and advised to wean off sedative meds-including xanax, oxycodone, percocet and flexeril which she usually takes as she needs and together. She has continued on the medications. She has been drowsy since arrival to the ER. Her sister is currently at bedside who states that following these episodes, patient has pressured speech and stutters. Hospitalist ROS - Review of Systems ROS unobtainable: due to mental status (Limited due to drowsy) Hospitalist History - Past Medical History Source: old records Cardiac: reports: HTN, Hyperlipidemia Psych: reports: Anxiety, Depression, Other Rheumatologic: reports: Fibromyalgia - Past Surgical History Past Surgical History: reports: - Family History Family History: reports: Other (epilepsy) - Social History Smoking Status: Never smoker Alcohol: reports: None Living Situation: With Family - Exam General Appearance: NAD Eye: PERRL ENT: normocephalic atraumatic Neck: supple, symmetric Heart: RRR, no murmur Respiratory: CTAB, no wheezes Gastrointestinal: soft, non-tender, non-distended Extremities: no cyanosis, no clubbing, no edema Skin: normal turgor, no lesions Neurological: cranial nerve grossly intact, normal sensation to touch, no weakness, no focal deficits, no new deficit Musculoskeletal - other findings: Generalized muscle tenderness Psychiatric: normal affect, A&O x 3, oriented to person Psychiatric - other findings: Abnormal behavior Hospitalist Results - Labs Result Diagrams: 09/30/19 16:25 09/30/19 16:25 Lab results: WBC 4.9 thou/uL (4.8-10.8) 09/30/19 16:25 Hgb 13.7 g/dL (12.0-16.0) 09/30/19 16:25 Hct 40.4 % (36.0-47.0) 09/30/19 16:25 MCV 87.7 fL (78.0-98.0) 09/30/19 16:25 Plt Count 205 thou/uL (130-400) 09/30/19 16:25 Neutrophils % 60.2 % (42.0-75.0) 09/30/19 16:25 Sodium 139 mmol/L (136-145) 09/30/19 16:25 Potassium 3.4 mmol/L (3.5-5.1) L 09/30/19 16:25 Chloride 106 mmol/L (98-107) 09/30/19 16:25 Carbon Dioxide 25 mmol/L (22-29) 09/30/19 16:25 BUN 14 mg/dL (9.8-20.1) 09/30/19 16:25 Creatinine 1.19 mg/dL (0.6-1.1) H 09/30/19 16:25 Glucose 88 mg/dL (70-105) 09/30/19 16:25 Calcium 9.0 mg/dL (7.8-10.44) 09/30/19 16:25 Total Bilirubin 0.3 mg/dL (0.2-1.2) 09/30/19 16:25 AST 22 U/L (5-34) 09/30/19 16:25 ALT 17 U/L (8-55) 09/30/19 16:25 Alkaline Phosphatase 122 U/L (40-110) H 09/30/19 16:25 Troponin I Less than 0.010 ng/mL (< 0.028) 09/30/19 16:25 Serum Total Protein 7.6 g/dL (6.0-8.3) 09/30/19 16:25 Albumin 4.1 g/dL (3.5-5.0) 09/30/19 16:25 - Radiology Interpretation CT scan - head Status: report reviewed by me Hospitalist H&P A/P - Plan Plan: Ms Benoit is 59y/o female who presents with probable LOC. #? Syncope- Patient has polypharmacy that are sedatives. Doubt this is a syncopal or seizure event. -Her symptoms are not cw any diagnosis thus far -She has full work up recently that has been unrevealing. No neuro focal deficits appreciated on PE. -Her post event pressured speech/stutter seems to disappear once she is engaged in a conversation. ?factitious disorder -CT brain is unremarkable. Recent MRI brain done at [facility] due to patient's nerve stimulator implant, also unremarkable. -Echocardiography recently. -For now telemonitoring and further attempts to rule out organic etiology -She will need to be weaned off narcotics and anxiolytics. 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 -history of fibromyalgia -Requesting for pain meds, will reinitiate to avoid withdrawal -monitor mental status #Lupus - not currently on any therapy. Needs outpatient follow up #Depression, anxiety- resume home meds. -on zyprexa for unclear diagnosis. -may benefit from psych evaluation outpatient. DVT ppx-SCD Patient is full code.
[2019-09-30] MEDS ORDERED: Amitriptyline HCl 100 MG TAB PO SCH (21:00)
[2019-09-30] MEDS ORDERED: hydrOXYzine 25 MG TAB PO SCH (21:00)
[2019-09-30] MEDS ORDERED: Pregabalin 75 MG CAP PO SCH (21:00)
[2019-10-01] MEDS ORDERED: Bupropion 150 MG XL TAB PO SCH (09:00)
[2019-10-01] MEDS ORDERED: Topiramate 25 MG TAB PO SCH (09:00)
== END 2019-09-30 20:18 | disposition home or self-care (01) ==
LOC: ERS 16:08
DX: R55 Syncope and collapse (principal); Z86.73 Personal history of transient ischemic attack (TIA), and cerebral infarction without residual deficits; Z79.899 Other long term (current) drug therapy
CPT/HCPCS: 36415; 70450; 71045; 72125; 80053; 84484; 85025; 93005; L0120

== ENCOUNTER 2020-04-27 12:47 | Emergency (ER) | payer BC, OTHER, SELFPAY ==
[2020-04-27] MEDS ORDERED: Aspirin Chewable 81 MG TAB ONE (13:29)
[2020-04-27] MEDS ORDERED: Ondansetron ODT 4 MG TAB ONE (13:29)
[2020-04-27] MEDS ORDERED: Acetaminophen 500 MG TAB ONE (13:29)
--- NOTE | 2020-04-27 13:50 | RAD ---
EXAM: Chest one view: HISTORY: Chest pain and shortness of breath COMPARISON: 09/30/2019 FINDINGS: Heart size: Within normal limits. Lungs: Patchy alveolar nodular and groundglass opacity changes in both lungs upper mid and lower aspe cts slightly worse on the left side. This certainly could be consistent with atypical pneumonia including viral pneumonia and Covid 19. Correlate with laboratory findings. No pleural effusion. IMPRESSION: Bilateral patchy alveolar and groundglass opacity changes evidence for atypical pneumonia including v iral pneumonias and Covid 19.
[2020-04-27 14:29] LABS: #Lymphocytes 0.5 thou/uL (1.20-3.40); #Monocytes 0.4 thou/uL (0.11-0.59); %Basophils 0.1 % (0.0-1.0); %Eosinophils 0.2 % (0.0-10.0); %Lymphocytes 12.7 % (21.0-51.0); Hemoglobin 13.8 g/dL (12.0-16.0); Mean Corpuscular HGB CONC 32.3 g/dL (32.0-36.0); Mean Corpuscular Hemoglobin 27.6 pg (27.0-31.0); Mean Corpuscular Volume 85.4 fL (78.0-98.0); Mean Platelet Volume 9.1 fL (7.4-10.4); Platelet Count 160 thou/uL (130-400); RBC Distribution Width 15.6 % (11.5-14.5); White Blood Cell (WBC) Count 3.9 thou/uL (4.8-10.8)
[2020-04-27 14:53] LABS: Anion Gap 13 mmol/L (10-20); BUN (Urea Nitrogen) 12 mg/dL (9.8-20.1); Calc. Creatinine Clearance 0 mL/min (70-130); Carbon Dioxide 22 mmol/L (23-31); Chloride 106 mmol/L (98-107); Potassium 3.8 mmol/L (3.5-5.1); Sodium 137 mmol/L (136-145)
[2020-04-27 14:54] LABS: ALT (SGPT) 29 U/L (8-55); AST (SGOT) 44 U/L (5-34); Albumin 3.6 g/dL (3.4-4.8); Alkaline Phosphatase 160 U/L (40-110); Bilirubin, Total 0.3 mg/dL (0.2-1.2); Calcium 8.5 mg/dL (7.8-10.44); Estimated GFR-MDRD 61; Globulin 3.7 g/dL (2.4-3.5); Glucose 91 mg/dL (80-115); Lipase 11 U/L (8-78); Protein, Total 7.3 g/dL (6.0-8.3)
[2020-04-28 14:37] LABS: SARS-CoV-2 MS2 Positive; SARS-CoV-2 N Gene Positive; SARS-CoV-2 S Gene Positive; SARS-CoV-2 orf1ab Positive
== END 2020-04-27 15:15 | disposition home or self-care (01) ==
LOC: ERS 12:47
DX: U07.1 COVID-19 (principal); J12.89 Other viral pneumonia; M79.7 Fibromyalgia; Z86.73 Personal history of transient ischemic attack (TIA), and cerebral infarction without residual deficits; Z79.899 Other long term (current) drug therapy
CPT/HCPCS: 71045; 80053; 83605; 83690; 83880; 84484; 85025; 87635; 93005; 94760; Q0162; U0003

== ENCOUNTER 2020-05-05 10:03 | Emergency (ER) | payer BC, OTHER ==
[2020-05-05] MEDS ORDERED: Ondansetron PF 4 MG/2 ML Vial ONE ×2 (10:34→11:42)
[2020-05-05 10:48] LABS: #Lymphocytes 0.9 thou/uL (1.20-3.40); #Monocytes 0.4 thou/uL (0.11-0.59); #Neutrophils 3.7 thou/uL (1.40-6.50); %Basophils 0.7 % (0.0-1.0); %Eosinophils 0.8 % (0.0-10.0); %Lymphocytes 17.4 % (21.0-51.0); %Monocytes 8.3 % (0.0-10.0); %Neutrophils 72.8 % (42.0-75.0); Hemoglobin 15.1 g/dL (12.0-16.0); Mean Corpuscular HGB CONC 33.8 g/dL (32.0-36.0); Mean Corpuscular Hemoglobin 29.1 pg (27.0-31.0); Mean Corpuscular Volume 86.1 fL (78.0-98.0); Mean Platelet Volume 8.2 fL (7.4-10.4); Platelet Count 332 thou/uL (130-400); RBC Distribution Width 15.5 % (11.5-14.5); Red Blood Cell (RBC) Count 5.17 mill/uL (4.20-5.40); White Blood Cell (WBC) Count 5.1 thou/uL (4.8-10.8)
--- NOTE | 2020-05-05 10:52 | RAD ---
EXAM: Single view of the chest HISTORY: Worsening chest pain. Covid positive COMPARISON: 04/27/2020 FINDINGS: Single view of the chest shows a normal sized cardiomediastinal silhouette. There may be a small retrocardiac infiltrate. The bones are unremarkable IMPRESSION: Possible retrocardiac infiltrate
[2020-05-05 11:26] LABS: ALT (SGPT) 14 U/L (8-55); AST (SGOT) 31 U/L (5-34); Albumin 3.8 g/dL (3.4-4.8); Alkaline Phosphatase 139 U/L (40-110); Anion Gap 12 mmol/L (10-20); BUN (Urea Nitrogen) 8 mg/dL (9.8-20.1); Bilirubin, Total 0.4 mg/dL (0.2-1.2); Calc. Creatinine Clearance 0 mL/min (70-130); Calcium 8.8 mg/dL (7.8-10.44); Carbon Dioxide 24 mmol/L (23-31); Chloride 106 mmol/L (98-107); Estimated GFR-MDRD 67; Globulin 4.6 g/dL (2.4-3.5); Glucose 90 mg/dL (80-115); Potassium 4.8 mmol/L (3.5-5.1); Protein, Total 8.4 g/dL (6.0-8.3); Sodium 137 mmol/L (136-145)
== END 2020-05-05 13:05 | disposition home or self-care (01) ==
LOC: ERS 10:03
DX: U07.1 COVID-19 (principal); J12.89 Other viral pneumonia; I10 Essential (primary) hypertension; F32.9 Major depressive disorder, single episode, unspecified; Z86.73 Personal history of transient ischemic attack (TIA), and cerebral infarction without residual deficits; Z79.899 Other long term (current) drug therapy
CPT/HCPCS: 71045; 80053; 83605; 84484; 85025; 93005; 96361; 96374; 96376; J2405

== ENCOUNTER 2022-06-28 19:30 | Emergency (ER) | payer SELFPAY ==
[2022-06-28] MEDS ORDERED: Midazolam HCl 2 mg/2 ml Vial ONE (20:19)
[2022-06-28] MEDS ORDERED: Ondansetron PF 4 MG/2 ML Vial ONE (20:20)
[2022-06-28] MEDS ORDERED: Ketorolac Tromethamine 30 MG/ML VIAL ONE (20:20)
[2022-06-28 20:27] LABS: Hemoglobin 14.2 g/dL (12.0-16.0); Mean Corpuscular HGB CONC 32.8 g/dL (32.0-36.0); Mean Corpuscular Hemoglobin 29.7 pg (27.0-31.0); Mean Corpuscular Volume 90.5 fL (78.0-98.0); Mean Platelet Volume 7.8 fL (7.4-10.4); Platelet Count 206 thou/uL (130-400); RBC Distribution Width 14.2 % (11.5-14.5); Red Blood Cell (RBC) Count 4.79 mill/uL (4.20-5.40); White Blood Cell (WBC) Count 5.8 thou/uL (4.8-10.8)
[2022-06-28 20:41] LABS: Eosinophils 2 % (0-10); Lymphocytes 19 % (21-51); MDiff Complete? YES; Monocytes 9 % (0-10); Neutrophil 68 % (42-75); Platelet Morphology Comment Appears Adequate; RBC Morphology Normal
[2022-06-28 21:00] LABS: Bilirubin Negative (Negative); Blood, Urine Negative (Negative); Clarity Clear (Clear); Glucose, Urine (Dipstick) Normal (Negative); Ketone, Urine Negative (Negative); Leukocyte Negative Leu/uL (Negative); Nitrite Negative (Negative); Protein, Urine (Dipstick) Negative (Neg-Trace); Specific Gravity, Urine 1.009 (1.002-1.036); Urobilinogen Normal mg/dL (Less than 2)
[2022-06-28 21:12] LABS: ALT (SGPT) 13 U/L (8-55); AST (SGOT) 19 U/L (5-34); Albumin 3.9 g/dL (3.4-4.8); Alkaline Phosphatase 111 U/L (40-110); Anion Gap 14 mmol/L (10-20); BUN (Urea Nitrogen) 14 mg/dL (9.8-20.1); Bilirubin, Total 0.4 mg/dL (0.2-1.2); CK (CPK) 72 U/L (29-168); Calc. Creatinine Clearance 0 mL/min (70-130); Carbon Dioxide 21 mmol/L (23-31); Chloride 107 mmol/L (98-107); Estimated GFR 49; Globulin 3.6 g/dL (2.4-3.5); Glucose 105 mg/dL (80-115); Lipase 15 U/L (8-78); Potassium 3.4 mmol/L (3.5-5.1); Protein, Total 7.5 g/dL (5.8-8.1); Sodium 139 mmol/L (136-145)
[2022-06-28 21:41] LABS: SARS-CoV-2 NAA Rapid Test Not Detected (NotDetected)
== END 2022-06-29 00:08 | disposition home or self-care (01) ==
LOC: ERS 19:30
DX: K29.70 Gastritis, unspecified, without bleeding (principal); R07.89 Other chest pain; M79.7 Fibromyalgia; M32.9 Systemic lupus erythematosus, unspecified; Z20.822 Contact with and (suspected) exposure to COVID-19; Z86.73 Personal history of transient ischemic attack (TIA), and cerebral infarction without residual deficits
CPT/HCPCS: 71045; 76705; 80053; 81003; 82550; 83690; 83880; 84484; 85025; 93005; 96374; 96375; J1885; J2250; J2405; U0002

== ENCOUNTER 2022-09-16 11:50 | Emergency (ER) | payer SELFPAY ==
[2022-09-16 12:40] LABS: #Eosinphils 0.2 thou/uL (0.0-0.7); #Lymphocytes 1.2 thou/uL (1.20-3.40); #Monocytes 0.4 thou/uL (0.11-0.59); #Neutrophils 3.5 thou/uL (1.40-6.50); %Basophils 0.8 % (0.0-1.0); %Eosinophils 3.1 % (0.0-10.0); %Monocytes 8.2 % (0.0-10.0); %Neutrophils 65.9 % (42.0-75.0); Mean Corpuscular HGB CONC 32.7 g/dL (32.0-36.0); Mean Corpuscular Hemoglobin 30.3 pg (27.0-31.0); Mean Corpuscular Volume 92.6 fl (78.0-98.0); Mean Platelet Volume 7.7 fL (7.4-10.4); Platelet Count 203 10x3/uL (130-400); RBC Distribution Width 13.7 % (11.5-14.5); Red Blood Cell (RBC) Count 4.28 mill/uL (4.20-5.40); White Blood Cell (WBC) Count 5.4 10x3/uL (4.8-10.8)
[2022-09-16 13:13] LABS: ALT (SGPT) 27 U/L (8-55); AST (SGOT) 33 U/L (5-34); Albumin 3.6 g/dL (3.4-4.8); Alkaline Phosphatase 143 U/L (40-110); Anion Gap 13 mmol/L (10-20); BUN (Urea Nitrogen) 17 mg/dL (9.8-20.1); Bilirubin, Total 0.2 mg/dL (0.2-1.2); Calc. Creatinine Clearance 0 mL/min (70-130); Calcium 8.5 mg/dL (7.8-10.44); Carbon Dioxide 21 mmol/L (23-31); Chloride 109 mmol/L (98-107); Estimated GFR 57; Globulin 3.3 g/dL (2.4-3.5); Glucose 77 mg/dL (80-115); Potassium 3.5 mmol/L (3.5-5.1); Protein, Total 6.9 g/dL (5.8-8.1); Sodium 139 mmol/L (136-145)
[2022-09-16 13:28] LABS: SARS-CoV-2 NAA Rapid Test Not Detected (NotDetected)
== END 2022-09-16 16:16 | disposition home or self-care (01) ==
LOC: ERS 11:50
DX: R55 Syncope and collapse (principal); M79.10 Myalgia, unspecified site; Z20.822 Contact with and (suspected) exposure to COVID-19
CPT/HCPCS: 70450; 71045; 72125; 80053; 84484; 85025; 93005